=== PATIENT | male | born 1965 | race Two or more races ===

== ENCOUNTER 2024-09-06 14:24 | Emergency (ER) | payer MEDICAID, SELFPAY ==
[2024-09-06 14:25] VITALS: BMI 21.4
[2024-09-06 14:42] VITALS: BP 132/76; PULSE 79; RESP 18; TEMP 36.2; O2SAT 98
--- NOTE | 2024-09-06 14:43 | EDNOTE_ITS ---
ED Male Genitalurinary RME/HPI General Chief complaint: Urogenital-Male Stated complaint: UNABLE TO URINATE, CHRONIC SAGASTUME REMOVED YESTERDAY Time Seen by Provider: 09/06/24 14:27 Arrival date/time: 09/06/24 14:24 59-year-old male presents to the emergency department today complains of urinary retention patient reports history of urinary retention requiring catheterization for more than a month patient went to the urologist yesterday and has catheter removed patient reports since then he is on been able to have a little bit of urine output requesting catheterization Limitations: no limitations Related Data Home Medications ?Medication ?Instructions ?Recorded ?Confirmed ciprofloxacin HCl 500 mg tablet 500 mg PO BID 08/27/24 08/27/24 (Cipro) diclofenac sodium 75 mg 75 mg PO BID 08/27/24 08/27/24 tablet,delayed release duloxetine 30 mg capsule,delayed 30 mg PO BID 08/27/24 08/27/24 release (Cymbalta) pregabalin 150 mg capsule 150 mg PO BID 08/27/24 08/27/24 tamsulosin 0.4 mg capsule (Flomax) 0.4 mg PO BID 08/27/24 08/27/24 vitamin B12 2,500 mcg-folic acid 1 tab PO DAILY 08/27/24 08/27/24 400 mcg disintegrating tablet Allergies Allergy/AdvReac Type Severity Reaction Status Date / Time No Known Allergies Allergy Verified 09/06/24 14:26 Review of Systems Review of Systems Systems Reviewed: All systems reviewed, normal except as documented Constitutional Constitutional: Reports system reviewed and no additional complaints, except as documented, Denies fever(s) and Denies headache(s) Eyes Eyes: Reports system reviewed and no additional complaints, except as documented and Denies blurry vision ENT Ears, Nose, Mouth, and Throat: Reports system reviewed and no additional complaints, except as documented, Denies headache(s), Denies nasal congestion and Denies nasal discharge Cardiovascular Cardiovascular: Reports system reviewed and no additional complaints, except as documented, Denies chest pain and Denies dyspnea Respiratory Respiratory: Reports system reviewed and no additional complaints, except as documented, Denies chest congestion, Denies cough and Denies dyspnea Gastrointestinal Gastrointestinal: Reports system reviewed and no additional complaints, except as documented and Denies abdominal pain Genitourinary Genitourinary: Reports system reviewed and no additional complaints, except as documented, Reports difficulty urinating, Reports oliguria and Denies testicular pain Integumentary/Breasts Skin/Breast: Reports system reviewed and no additional complaints, except as documented and Denies rash Neurologic Neurologic: Reports system reviewed and no additional complaints, except as documented, Reports as per HPI and Denies headache(s) Past Medical History Past Medical History NEUROLOGIC: Negative Neurological Disorders or Seizures CARDIAC: Negative Cardiac Disorders or Congestive Heart Failure RESPIRATORY: Negative Chronic Obstructive Pulmonary Disease (COPD) GASTROINTESTINAL: Negative Gastrointestinal Disorders or Hepatitis GENITOURINARY: Positive Genitourinary Disorders and Benign Prostatic Hyperplasia; Negative Renal Disease MUSCULOSKELETAL: Positive Arthritis and Degenerative Disk Disease ENDOCRINE: Negative Endocrine Disorders, Diabetes Mellitus Type 1 or Diabetes Mellitus Type 2 HEMATOLOGIC: Negative Blood Disorders PSYCHO/SOCIAL: Positive Depression OTHER HISTORY: Positive Hospitalization (vertigo); Negative Autoimmune Disease, Shingles, Blood Transfusions, Blood Transfusion Reaction, Anesthesia Reactions or Cancer Family History FAMILY HISTORY: Positive Family Respiratory Disorders; Negative Family Psychiatric Problems, Family Cardiac Disorders, Family Gastrointestinal Problems, Family Cancer, Family Surgery or Family Anesthesia Reaction Social History SMOKING STATUS: Never smoker ED Exam General Limitations: Present no limitations General appearance: Present alert and in no apparent distress Head Head exam: Present atraumatic Eye Eye exam: Present normal appearance, PERRL and EOMI ENT ENT exam: Present normal exam, normal oropharynx and mucous membranes moist Neck Neck exam: Present normal inspection, full ROM and trachea midline Chest Chest inspection: Present normal inspection and symmetric chest wall rise Respiratory Respiratory exam: Present normal lung sounds bilaterally Cardiovascular Cardiovascular exam: Present regular rate, normal rhythm and normal heart sounds Abdominal Exam Abdominal exam: Present soft, distention, tenderness and normal bowel sounds; Absent guarding, rebound or rigidity Extremities Exam Extremities exam: Present normal inspection and full ROM Back Exam Back exam: Present normal inspection and full ROM Neurological Exam Neurological exam: Present alert, oriented X3 and CN II-XII intact Psychiatric Psychiatric exam: Present normal affect and normal mood Skin Skin exam: Present warm, dry, intact and normal color Course Quality Measures none Orders Category Date Time Status Sagastume [Urinary Catheter] NOW Care 09/06/24 14:43 Active Vital Signs Vital signs: Vital Signs Temperature 97.2 F 09/06/24 14:42 Pulse Rate 79 09/06/24 14:42 Respiratory Rate 18 09/06/24 14:42 Blood Pressure 132/76 H 09/06/24 14:42 Pulse Oximetry (%) 98 09/06/24 14:42 Oxygen Delivery Method Room Air 09/06/24 14:42 O2 saturation 98% room air within normal limits Urogenital - Male MDM Narrative MDM Narrative:: 59-year-old male presents to the emergency department today complains of urinary retention patient reports history of urinary retention requiring catheterization for more than a month patient went to the urologist yesterday and has catheter removed patient reports since then he is on been able to have a little bit of urine output requesting catheterization On exam patient appears to be in quite a bit of pain Sagastume catheter placed patient reports immediate relief Patient discharged home in no distress to follow-up with urologist in the next 24 to 48 hours and for any worsening symptoms to return to the ER immediately Patient data External records reviewed:: [facility] previous records Clinical information provided by:: patient Social determinants that could affect healthcare access:: none Patient has the following chronic illnesses:: Urinary retention How is presenting disease/condition affected by chronic disease/condition?: caused by Evaluation data The following diagnostics were reviewed and interpreted by me:: other (specify) (N/A) Lab and/or radiology exams considered but not ordered:: Consider not ordered Interpretation Summary: N/A Medications / Prescriptions Medications or Prescriptions considered but not ordered:: Given no meds Medication administrations:: Given no meds Consultations Consultation(s) initiated? (list below): No Diagnosis Urogenital Male Differential Diagnosis: urinary tract infection and acute retention of urine Most likely diagnosis given after review of the tests above:: Urinary retention Admission Indicated Admission indicated?: not indicated Admission Request Was there a request for admission?: No Disposition Plan Disposition Plan: Discharge Discharge Attestation Discharge Attestation: The patient and all family members were given an opportunity to ask questions and understood the discharge instructions. Discharge instructions specifically effects, indications for sooner follow up or return to the emergency department, and the expected course of current diagnosis. Patient condition: Stable Discharge Plan Plan Patient Disposition: HOME (Self Care) Disposition Comment: Stable Prescriptions/Referrals Prescriptions/Med Rec: No Action ciprofloxacin HCl [Cipro] 500 mg Tablet 500 mg PO BID tamsulosin [Flomax] 0.4 mg Capsule 0.4 mg PO BID diclofenac sodium 75 mg Tablet,Delayed Release (Dr/Ec) 75 mg PO BID duloxetine [Cymbalta] 30 mg Capsule,Delayed Release(Dr/Ec) 30 mg PO BID pregabalin 150 mg Capsule 150 mg PO BID vitamin K29-falwc acid 2,500-400 mcg Tablet,Disintegrating 1 tab PO DAILY Problem List Clinical Impression: Acute on chronic urinary retention Patient/Caregiver Discharge Instructions Education Materials: ED Sagastume Catheter, Care Additional Instructions: Please follow-up with your urologist as discussed for worsening symptoms return immediately Print Language: Malagasy Stand Alone Forms: Re Award Info., Patient Portal Info Letter PA/HIGH SCHOOL PROFESSIONAL Supervising Physician PA/HIGH SCHO[employer] PROFESSIONAL Supervising Physician: Dr. [email or web address]
== END 2024-09-06 19:47 | disposition home or self-care (01) ==
PROVIDERS: Emergency Provider Emergency Medicine
DX: N40.1 Benign prostatic hyperplasia with lower urinary tract symptoms (principal); R33.8 Other retention of urine
CPT/HCPCS: 51702; 99283

== ENCOUNTER 2024-10-09 14:30 | Emergency (ER) | payer MEDICAID, SELFPAY ==
[2024-10-09 14:36] VITALS: BP 138/78; PULSE 75; RESP 20; TEMP 36.7; O2SAT 98
--- NOTE | 2024-10-09 14:39 | PD.EDMALE ---
ED Male Genitalurinary RME/HPI General Chief complaint: Urogenital-Male Stated complaint: URINARY RETENTION Time Seen by Provider: 10/09/24 14:39 Arrival date/time: 10/09/24 14:30 59-year-old male presents the emergency department today complains of urinary retention requiring catheterization patient reports history of the same patient seen by Dr. Wong urologist Limitations: no limitations Related Data Home Medications ?Medication ?Instructions ?Recorded ?Confirmed ciprofloxacin HCl 500 mg tablet 500 mg PO BID 08/27/24 08/27/24 (Cipro) diclofenac sodium 75 mg 75 mg PO BID 08/27/24 08/27/24 tablet,delayed release duloxetine 30 mg capsule,delayed 30 mg PO BID 08/27/24 08/27/24 release (Cymbalta) pregabalin 150 mg capsule 150 mg PO BID 08/27/24 08/27/24 tamsulosin 0.4 mg capsule (Flomax) 0.4 mg PO BID 08/27/24 08/27/24 vitamin B12 2,500 mcg-folic acid 1 tab PO DAILY 08/27/24 08/27/24 400 mcg disintegrating tablet Allergies Allergy/AdvReac Type Severity Reaction Status Date / Time No Known Allergies Allergy Verified 09/06/24 14:26 Review of Systems Review of Systems Systems Reviewed: All systems reviewed, normal except as documented Constitutional Constitutional: Reports system reviewed and no additional complaints, except as documented, Denies fever(s) and Denies headache(s) Eyes Eyes: Reports system reviewed and no additional complaints, except as documented and Denies blurry vision ENT Ears, Nose, Mouth, and Throat: Reports system reviewed and no additional complaints, except as documented, Denies headache(s), Denies nasal congestion and Denies nasal discharge Cardiovascular Cardiovascular: Reports system reviewed and no additional complaints, except as documented, Denies chest pain and Denies dyspnea Respiratory Respiratory: Reports system reviewed and no additional complaints, except as documented, Denies chest congestion, Denies cough and Denies dyspnea Gastrointestinal Gastrointestinal: Reports system reviewed and no additional complaints, except as documented and Denies abdominal pain Genitourinary Genitourinary: Reports system reviewed and no additional complaints, except as documented, Reports difficulty urinating and Reports other (Urinary retention) Integumentary/Breasts Skin/Breast: Reports system reviewed and no additional complaints, except as documented and Denies rash Neurologic Neurologic: Reports system reviewed and no additional complaints, except as documented, Reports as per HPI and Denies headache(s) Past Medical History Past Medical History NEUROLOGIC: Negative Neurological Disorders or Seizures CARDIAC: Negative Cardiac Disorders or Congestive Heart Failure RESPIRATORY: Negative Chronic Obstructive Pulmonary Disease (COPD) GASTROINTESTINAL: Negative Gastrointestinal Disorders or Hepatitis GENITOURINARY: Positive Genitourinary Disorders and Benign Prostatic Hyperplasia; Negative Renal Disease MUSCULOSKELETAL: Positive Arthritis and Degenerative Disk Disease ENDOCRINE: Negative Endocrine Disorders, Diabetes Mellitus Type 1 or Diabetes Mellitus Type 2 HEMATOLOGIC: Negative Blood Disorders PSYCHO/SOCIAL: Positive Depression OTHER HISTORY: Positive Hospitalization (vertigo); Negative Autoimmune Disease, Shingles, Blood Transfusions, Blood Transfusion Reaction, Anesthesia Reactions or Cancer Family History FAMILY HISTORY: Positive Family Respiratory Disorders; Negative Family Psychiatric Problems, Family Cardiac Disorders, Family Gastrointestinal Problems, Family Cancer, Family Surgery or Family Anesthesia Reaction Social History SMOKING STATUS: Never smoker ED Exam General Limitations: Present no limitations General appearance: Present alert and in no apparent distress Head Head exam: Present atraumatic Eye Eye exam: Present normal appearance, PERRL and EOMI ENT ENT exam: Present normal exam, normal oropharynx and mucous membranes moist Neck Neck exam: Present normal inspection, full ROM and trachea midline Chest Chest inspection: Present normal inspection and symmetric chest wall rise Respiratory Respiratory exam: Present normal lung sounds bilaterally Cardiovascular Cardiovascular exam: Present regular rate, normal rhythm and normal heart sounds Abdominal Exam Abdominal exam: Present soft and normal bowel sounds; Absent distention, tenderness, guarding, rebound or rigidity Extremities Exam Extremities exam: Present normal inspection and full ROM Back Exam Back exam: Present normal inspection and full ROM Neurological Exam Neurological exam: Present alert, oriented X3 and CN II-XII intact Psychiatric Psychiatric exam: Present normal affect and normal mood Skin Skin exam: Present warm, dry, intact and normal color Course Quality Measures none Orders Category Date Time Status Blunt [Urinary Catheter] NOW Care 10/09/24 14:40 Active Blunt to Leg Bag NOW Care 10/09/24 14:40 Ordered Vital Signs Vital signs: Vital Signs Temperature 98.1 F 10/09/24 14:36 Pulse Rate 75 10/09/24 14:36 Respiratory Rate 20 10/09/24 14:36 Blood Pressure 138/78 H 10/09/24 14:36 Pulse Oximetry (%) 98 10/09/24 14:36 Oxygen Delivery Method Room Air 10/09/24 14:36 O2 saturation 98% room air within normal limits Urogenital - Male MDM Narrative MDM Narrative:: 59-year-old male presents the emergency department today complains of urinary retention requiring catheterization patient reports history of the same patient seen by Dr. Wong urologist On exam patient well-appearing patient does not appear ill or toxic patient does not appear in acute distress Patient reports pelvic pain and retention Blunt catheter is replaced Patient reports immediate relief Patient discharged home in no distress to follow-up with primary care doctor in the next 24 to 48 hours and for any worsening symptoms to return to the ER immediately Patient data External records reviewed:: [facility] previous records Clinical information provided by:: patient Social determinants that could affect healthcare access:: none Patient has the following chronic illnesses:: Urinary retention How is presenting disease/condition affected by chronic disease/condition?: caused by Evaluation data The following diagnostics were reviewed and interpreted by me:: other (specify) (N/A) Lab and/or radiology exams considered but not ordered:: N/A Interpretation Summary: N/A Medications / Prescriptions Medications or Prescriptions considered but not ordered:: No meds Medication administrations:: No meds Consultations Consultation(s) initiated? (list below): No Diagnosis Urogenital Male Differential Diagnosis: urinary tract infection, prostatitis and acute retention of urine Most likely diagnosis given after review of the tests above:: Urinary retention Admission Indicated Admission indicated?: not indicated Admission Request Was there a request for admission?: No Disposition Plan Disposition Plan: Discharge Discharge Attestation Discharge Attestation: The patient and all family members were given an opportunity to ask questions and understood the discharge instructions. Discharge instructions specifically effects, indications for sooner follow up or return to the emergency department, and the expected course of current diagnosis. Patient condition: Stable Discharge Plan Plan Patient Disposition: HOME (Self Care) Disposition Comment: Stable Prescriptions/Referrals Prescriptions/Med Rec: No Action ciprofloxacin HCl [Cipro] 500 mg Tablet 500 mg PO BID tamsulosin [Flomax] 0.4 mg Capsule 0.4 mg PO BID diclofenac sodium 75 mg Tablet,Delayed Release (Dr/Ec) 75 mg PO BID duloxetine [Cymbalta] 30 mg Capsule,Delayed Release(Dr/Ec) 30 mg PO BID pregabalin 150 mg Capsule 150 mg PO BID vitamin Y70-xarvl acid 2,500-400 mcg Tablet,Disintegrating 1 tab PO DAILY Problem List Clinical Impression: Acute urinary retention Patient/Caregiver Discharge Instructions Education Materials: ED Urinary Retention, Male Additional Instructions: Please follow-up with urologist as discussed for worsening symptoms return immediately Print Language: Kinyarwanda Stand Alone Forms: Re Award Info., Patient Portal Info Letter PA/TECHNICIAN [employer]BMAR[employer] EQUIPMENT Supervising Physician PA/TECHNICIAN [employer]MENT Supervising Physician: Dr Mcclelland
== END 2024-10-09 19:02 | disposition home or self-care (01) ==
LOC: SERX 15:10
PROVIDERS: Emergency Provider Emergency Medicine; PCP Surgery
DX: N40.1 Benign prostatic hyperplasia with lower urinary tract symptoms (principal); R33.8 Other retention of urine
CPT/HCPCS: 51702; 99283